=== PATIENT | female | born 1985 | race Caucasian/White ===

== ENCOUNTER 2018-01-21 17:41 | Inpatient (IN) | payer OTHER ==
[2018-01-21 20:20] LABS: ADD UMIC NO; UR ASCORBIC ACID NEGATIVE (NEGATIVE); UR BILIRUBIN (Dip) NEGATIVE (NEGATIVE); UR BLOOD (Dip) NEGATIVE (NEGATIVE); UR CLARITY SLIGHTLY CLOUDY (CLEAR); UR COLOR YELLOW (YELLOW); UR GLUCOSE (Dip) NEGATIVE (NEGATIVE); UR KETONES (Dip) NEGATIVE (NEGATIVE); UR LEUKOCYTE ESTERASE (Dip) NEGATIVE Leu/ul (NEGATIVE); UR NITRITE (Dip) NEGATIVE (NEGATIVE); UR RBC 0 /HPF (0-5); UR SPECIFIC GRAVITY (Dip) 1.014 (1.003-1.030); UR SQUAMOUS EPITHELIAL CELL FEW /HPF (FEW); UR TOTAL PROTEIN (Dip) NEGATIVE (NEGATIVE); UR UROBILINOGEN (Dip) NEGATIVE (NEGATIVE); UR WBC 0 /HPF (0-5)
[2018-01-21] MEDS: PANTOPRAZOLE 40 MG INJ IV (20:22)
[2018-01-21] MEDS: ONDANSETRON 4 MG INJ IV (20:23)
[2018-01-21] MEDS: KETOROLAC 30 MG INJ IV (20:23)
[2018-01-21] MEDS: LACTATED RINGER'S 1,000 ML IV (20:29)
[2018-01-21 20:50] LABS: ADD MAN DIFF? NO
[2018-01-21] MEDS: morphine 4 MG/ML VIAL IV (20:50)
[2018-01-21 20:51] LABS: BASOPHILS % 0.3 % (0.0-2.0); EOSINOPHILS # 0.1 10^3/ul (0.0-0.5); EOSINOPHILS % 0.8 % (0.0-7.0); HEMATOCRIT 39.2 % (37.0-47.0); HEMOGLOBIN 11.9 g/dl (12.0-16.0); LYMPHOCYTES # 4.7 10^3/ul (0.8-2.9); LYMPHOCYTES % 34.8 % (15.0-51.0); MEAN CORPUSCULAR HEMOGLOBIN 23.2 pg (29.0-33.0); MEAN CORPUSCULAR HGB CONC 30.4 g/dl (32.0-37.0); MEAN CORPUSCULAR VOLUME 76.3 fl (82.0-101.0); MEAN PLATELET VOLUME 10.4 fl (7.4-10.4); MONOCYTE # 0.9 10^3/ul (0.3-0.9); MONOCYTES % 6.4 % (0.0-11.0); NEUTROPHIL # 7.7 10^3/ul (1.6-7.5); NEUTROPHILS % 57.3 % (39.0-77.0); PLATELET COUNT 331 10^3/UL (140-415); RED BLOOD COUNT 5.14 10^6/ul (4.20-5.40); RED CELL DISTRIBUTION WIDTH 14.6 % (11.5-14.5)
[2018-01-21 20:51] LABS: WHITE BLOOD COUNT 13.5 10^3/ul (4.8-10.8)
[2018-01-21] MEDS: AL HYDROX/MG HYDROX/SIMETH 30 ML CUP PO (20:53)
[2018-01-21 21:08] LABS: ALANINE AMINOTRANSFERASE 58 IU/L (13-69); ALBUMIN 4.7 g/dl (3.3-4.9); ALKALINE PHOSPHATASE 105 IU/L (42-121); ANION GAP 20 (8-16); ASPARTATE AMINO TRANSFERASE 28 IU/L (15-46); BILIRUBIN,INDIRECT 0.5 mg/dl (0-1.1); BILIRUBIN,TOTAL 0.5 mg/dl (0.2-1.3); BLOOD UREA NITROGEN 8 mg/dl (7-20); CALCIUM 9.3 mg/dl (8.4-10.2); CARBON DIOXIDE 24 mmol/L (21-31); CHLORIDE 104 mmol/L (97-110); CREATININE 0.63 mg/dl (0.44-1.00); GLUCOSE 92 mg/dl (70-220); LIPASE 77 U/L (23-300); POTASSIUM 3.8 mmol/L (3.5-5.1); SODIUM 144 mmol/L (135-144); TOTAL PROTEIN 8.6 g/dl (6.1-8.1)
[2018-01-21] MEDS: MAGNESIUM CITRATE 300 ML BTL PO (23:13)
[2018-01-21] MEDS: METOCLOPRAMIDE 10 MG TAB PO (23:13)
[2018-01-21] MEDS: DICYCLOMINE 10 MG CAP PO (23:13)
[2018-01-22] MEDS: MAGNESIUM CITRATE 300 ML BTL PO (01:20)
[2018-01-22] MEDS ORDERED: ACETAMINOPHEN 325 MG TAB PO (10:00)
[2018-01-22] MEDS: PANTOPRAZOLE 40 MG INJ IV (10:16)
[2018-01-22] MEDS: DEXTROSE 5%-0.9% NACL 1,000 ML IV (10:16)
[2018-01-22] MEDS: ONDANSETRON 4 MG INJ IV ×2 (10:16→17:55)
[2018-01-22] MEDS: BISACODYL 10 MG SUPP PR (12:38)
[2018-01-22] MEDS: CEFTRIAXONE 1 GM/50 ML (PMX) 50 ML IVPB (14:29)
[2018-01-22] MEDS: morphine 2 MG INJ IV (21:56)
[2018-01-23] MEDS: DEXTROSE 5%-0.9% NACL 1,000 ML IV (00:25)
[2018-01-23] MEDS: PANTOPRAZOLE 40 MG INJ IV (05:47)
[2018-01-23 06:18] LABS: ADD MAN DIFF? NO
[2018-01-23 06:26] LABS: WHITE BLOOD COUNT 9.9 10^3/ul (4.8-10.8)
[2018-01-23 06:26] LABS: BASOPHILS % 0.3 % (0.0-2.0); EOSINOPHILS # 0.1 10^3/ul (0.0-0.5); EOSINOPHILS % 1.2 % (0.0-7.0); HEMATOCRIT 34.3 % (37.0-47.0); HEMOGLOBIN 10.6 g/dl (12.0-16.0); LYMPHOCYTES # 3.6 10^3/ul (0.8-2.9); LYMPHOCYTES % 36.7 % (15.0-51.0); MEAN CORPUSCULAR HEMOGLOBIN 23.5 pg (29.0-33.0); MEAN CORPUSCULAR HGB CONC 30.9 g/dl (32.0-37.0); MEAN CORPUSCULAR VOLUME 76.1 fl (82.0-101.0); MEAN PLATELET VOLUME 10.2 fl (7.4-10.4); MONOCYTE # 0.7 10^3/ul (0.3-0.9); MONOCYTES % 6.6 % (0.0-11.0); NEUTROPHIL # 5.4 10^3/ul (1.6-7.5); NEUTROPHILS % 54.9 % (39.0-77.0); PLATELET COUNT 300 10^3/UL (140-415); RED BLOOD COUNT 4.51 10^6/ul (4.20-5.40); RED CELL DISTRIBUTION WIDTH 14.6 % (11.5-14.5)
[2018-01-23 07:04] LABS: ALANINE AMINOTRANSFERASE 52 IU/L (13-69); ALBUMIN 3.3 g/dl (3.3-4.9); ALBUMIN/GLOBULIN RATIO 1.03; ALKALINE PHOSPHATASE 74 IU/L (42-121); ANION GAP 14 (8-16); ASPARTATE AMINO TRANSFERASE 29 IU/L (15-46); BILIRUBIN,INDIRECT 0.5 mg/dl (0-1.1); BILIRUBIN,TOTAL 0.5 mg/dl (0.2-1.3); BLOOD UREA NITROGEN 8 mg/dl (7-20); CALCIUM 8.5 mg/dl (8.4-10.2); CARBON DIOXIDE 25 mmol/L (21-31); CHLORIDE 110 mmol/L (97-110); CREATININE 0.76 mg/dl (0.44-1.00); GLUCOSE 97 mg/dl (70-220); POTASSIUM 3.8 mmol/L (3.5-5.1); SODIUM 145 mmol/L (135-144); TOTAL PROTEIN 6.5 g/dl (6.1-8.1)
[2018-01-23] MEDS: CEFTRIAXONE 1 GM/50 ML (PMX) 50 ML IVPB (13:03)
[2018-01-23] MEDS: ONDANSETRON 4 MG INJ IV (17:20)
[2018-01-23] MEDS: LUBIPROSTONE 24 MCG CAP PO (21:39)
[2018-01-24] MEDS: PANTOPRAZOLE 40 MG INJ IV (05:59)
[2018-01-24] MEDS: morphine 2 MG INJ IV ×2 (08:21→15:17)
[2018-01-24] MEDS: POLYETHYLENE GLYCOL 17 GM PACKET PO (08:49)
[2018-01-24] MEDS: LUBIPROSTONE 24 MCG CAP PO ×2 (08:49→21:10)
[2018-01-24] MEDS: ONDANSETRON 4 MG INJ IV (13:35)
[2018-01-24] MEDS: CEFTRIAXONE 1 GM/50 ML (PMX) 50 ML IVPB (13:35)
[2018-01-25] MEDS: DEXTROSE 5%-0.45% NACL 1,000 ML IV ×2 (00:08→20:19)
[2018-01-25] MEDS: PANTOPRAZOLE 40 MG INJ IV (05:39)
[2018-01-25 05:57] LABS: ADD MAN DIFF? NO
[2018-01-25 06:02] LABS: WHITE BLOOD COUNT 10.2 10^3/ul (4.8-10.8)
[2018-01-25 06:02] LABS: BASOPHILS % 0.3 % (0.0-2.0); EOSINOPHILS # 0.1 10^3/ul (0.0-0.5); EOSINOPHILS % 1.3 % (0.0-7.0); HEMATOCRIT 33.4 % (37.0-47.0); HEMOGLOBIN 10.4 g/dl (12.0-16.0); LYMPHOCYTES # 2.8 10^3/ul (0.8-2.9); LYMPHOCYTES % 27.5 % (15.0-51.0); MEAN CORPUSCULAR HEMOGLOBIN 23.7 pg (29.0-33.0); MEAN CORPUSCULAR HGB CONC 31.1 g/dl (32.0-37.0); MEAN CORPUSCULAR VOLUME 76.3 fl (82.0-101.0); MONOCYTE # 0.7 10^3/ul (0.3-0.9); MONOCYTES % 6.8 % (0.0-11.0); NEUTROPHIL # 6.5 10^3/ul (1.6-7.5); NEUTROPHILS % 63.8 % (39.0-77.0); PLATELET COUNT 285 10^3/UL (140-415); RED BLOOD COUNT 4.38 10^6/ul (4.20-5.40); RED CELL DISTRIBUTION WIDTH 14.8 % (11.5-14.5)
[2018-01-25 06:03] LABS: RETICULOCYTE RBC 4.24
[2018-01-25 06:03] LABS: RETICULOCYTE COUNT # 0.073 X10^6 (0.020-0.110); RETICULOCYTE COUNT % 1.7 % (0.5-1.5)
[2018-01-25 06:49] LABS: ALANINE AMINOTRANSFERASE 52 IU/L (13-69); ALBUMIN 3.7 g/dl (3.3-4.9); ALBUMIN/GLOBULIN RATIO 1.12; ALKALINE PHOSPHATASE 72 IU/L (42-121); ANION GAP 17 (8-16); ASPARTATE AMINO TRANSFERASE 35 IU/L (15-46); BILIRUBIN,INDIRECT 0.2 mg/dl (0-1.1); BILIRUBIN,TOTAL 0.2 mg/dl (0.2-1.3); BLOOD UREA NITROGEN 12 mg/dl (7-20); CALCIUM 8.6 mg/dl (8.4-10.2); CARBON DIOXIDE 24 mmol/L (21-31); CHLORIDE 107 mmol/L (97-110); CREATININE 0.68 mg/dl (0.44-1.00); GLUCOSE 111 mg/dl (70-220); POTASSIUM 3.7 mmol/L (3.5-5.1); SODIUM 144 mmol/L (135-144)
[2018-01-25 07:10] LABS: FERRITIN 12.5 ng/ml (6.2-137.0)
[2018-01-25] MEDS: LUBIPROSTONE 24 MCG CAP PO ×2 (09:06→20:19)
[2018-01-25] MEDS: ONDANSETRON 4 MG INJ IV ×2 (09:07→16:19)
[2018-01-25] MEDS: POLYETHYLENE GLYCOL 17 GM PACKET PO (09:07)
[2018-01-25] MEDS: CEFTRIAXONE 1 GM/50 ML (PMX) 50 ML IVPB (13:24)
[2018-01-25] MEDS ORDERED: morphine LIQ (10 MG/5 ML) CUP PO (14:30)
[2018-01-25 16:58] LABS: OCCULT BLOOD STOOL NEGATIVE (NEGATIVE)
[2018-01-26] MEDS: PANTOPRAZOLE 40 MG INJ IV (05:44)
[2018-01-26] MEDS: ONDANSETRON 4 MG INJ IV (05:47)
[2018-01-26 06:21] LABS: ADD MAN DIFF? NO
[2018-01-26 06:29] LABS: BASOPHILS % 0.4 % (0.0-2.0); EOSINOPHILS # 0.2 10^3/ul (0.0-0.5); EOSINOPHILS % 1.5 % (0.0-7.0); HEMATOCRIT 33.9 % (37.0-47.0); HEMOGLOBIN 10.6 g/dl (12.0-16.0); LYMPHOCYTES # 3.6 10^3/ul (0.8-2.9); LYMPHOCYTES % 34.8 % (15.0-51.0); MEAN CORPUSCULAR HEMOGLOBIN 23.7 pg (29.0-33.0); MEAN CORPUSCULAR HGB CONC 31.3 g/dl (32.0-37.0); MEAN CORPUSCULAR VOLUME 75.8 fl (82.0-101.0); MEAN PLATELET VOLUME 10.4 fl (7.4-10.4); MONOCYTE # 0.8 10^3/ul (0.3-0.9); MONOCYTES % 7.2 % (0.0-11.0); NEUTROPHIL # 5.8 10^3/ul (1.6-7.5); NEUTROPHILS % 55.7 % (39.0-77.0); PLATELET COUNT 290 10^3/UL (140-415); RED BLOOD COUNT 4.47 10^6/ul (4.20-5.40); RED CELL DISTRIBUTION WIDTH 15.1 % (11.5-14.5)
[2018-01-26 06:29] LABS: WHITE BLOOD COUNT 10.4 10^3/ul (4.8-10.8)
[2018-01-26 06:53] LABS: ALANINE AMINOTRANSFERASE 47 IU/L (13-69); ALBUMIN 3.8 g/dl (3.3-4.9); ALBUMIN/GLOBULIN RATIO 1.08; ALKALINE PHOSPHATASE 78 IU/L (42-121); ANION GAP 18 (8-16); ASPARTATE AMINO TRANSFERASE 38 IU/L (15-46); BILIRUBIN,INDIRECT 0.2 mg/dl (0-1.1); BILIRUBIN,TOTAL 0.2 mg/dl (0.2-1.3); BLOOD UREA NITROGEN 14 mg/dl (7-20); CALCIUM 8.8 mg/dl (8.4-10.2); CARBON DIOXIDE 23 mmol/L (21-31); CHLORIDE 107 mmol/L (97-110); CREATININE 0.69 mg/dl (0.44-1.00); GLUCOSE 101 mg/dl (70-220); POTASSIUM 3.7 mmol/L (3.5-5.1); SODIUM 144 mmol/L (135-144); TOTAL PROTEIN 7.3 g/dl (6.1-8.1)
[2018-01-26 07:10] LABS: INR 0.96; PROTIME 12.9 Sec (11.9-14.9)
[2018-01-26] MEDS: LUBIPROSTONE 24 MCG CAP PO (08:23)
[2018-01-26] MEDS: POLYETHYLENE GLYCOL 17 GM PACKET PO (08:24)
[2018-01-26] MEDS: PROPOFOL 20 ML (08:49)
[2018-01-26] MEDS ORDERED: hydrALAzine 20 MG INJ IV (09:00)
[2018-01-26] MEDS ORDERED: OXYCODONE/ACETAMINOPHEN (5/325) TAB PO ×2 (09:00)
[2018-01-26] MEDS ORDERED: ONDANSETRON 4 MG INJ IV (09:00)
[2018-01-26] MEDS ORDERED: FENTAnyl 50 MCG/ML VIAL IV ×3 (09:00)
[2018-01-26] MEDS ORDERED: EPHEDrine SULFATE 50 MG/5 ML SYG IV (09:00)
[2018-01-26] MEDS ORDERED: MEPERIDINE 25 MG INJ IV (09:00)
[2018-01-26] MEDS ORDERED: LABETALOL HCL 20MG INJ IV (09:00)
[2018-01-26] MEDS ORDERED: MIDAZOLAM 1 MG/ML 2 ML INJ IV (09:00)
[2018-01-26] MEDS ORDERED: DIPHENHYDRAMINE 50 MG INJ IV (09:00)
[2018-01-26] MEDS: METOCLOPRAMIDE 10 MG INJ IV (10:05)
[2018-01-26] MEDS: CEFTRIAXONE 1 GM/50 ML (PMX) 50 ML IVPB (12:05)
== END 2018-01-26 14:45 | disposition home or self-care (01) | DRG 445 ==
LOC: FTE 17:41 → MS2 01-22 05:18
PROC: 0DB68ZX Excision of Stomach, Via Natural or Artificial Opening Endoscopic, Diagnostic (ICD-10-PCS; principal; 2018-01-26 08:45)
DX: K82.8 Other specified diseases of gallbladder (principal); R65.10 Systemic inflammatory response syndrome (SIRS) of non-infectious origin without acute organ dysfunction; K76.0 Fatty (change of) liver, not elsewhere classified; D64.89 Other specified anemias; K29.70 Gastritis, unspecified, without bleeding; J45.909 Unspecified asthma, uncomplicated; K59.00 Constipation, unspecified
CPT/HCPCS: 36415; 74018; 74181; 76705; 76775; 80053; 81001; 81003; 81025; 82270; 82607; 82728; 82746; 83690; 85025; 85045; 85610; 85730; 88305; 88312; 96374; 96375; 99285-25

== ENCOUNTER 2019-05-05 00:34 | Emergency (ER) | payer OTHER ==
[2019-05-05] MEDS ORDERED: DIPHENHYDRAMINE 50 MG CAP PO (01:30)
== END 2019-05-05 01:15 | disposition home or self-care (01) ==
LOC: FTE 00:34
DX: L29.9 Pruritus, unspecified (principal)
CPT/HCPCS: 99283; Z7502